=== PATIENT | female | born 1980 | race African-American/Black ===

== ENCOUNTER 2018-04-07 22:15 | Emergency (ER) | payer OTHER ==
[~2018-04-07] VITALS: Ht 170.2 cm; Wt 91.0 kg
[2018-04-07 22:30] VITALS: BP 148/100
== END 2018-04-08 00:30 | disposition left against medical advice (07) ==
LOC: ER 22:46
DX: Z04.1 Encounter for examination and observation following transport accident (principal); M54.9 Dorsalgia, unspecified; M79.601 Pain in right arm; M79.604 Pain in right leg; Z53.21 Procedure and treatment not carried out due to patient leaving prior to being seen by health care provider